=== PATIENT | male | born 1975 | race Caucasian/White ===

== ENCOUNTER 2018-06-02 19:17 | Emergency (ER) | payer OTHER ==
[~2018-06-02] VITALS: Ht 167.6 cm; Wt 83.9 kg
[~2018-06-02 19:17] MED LIST: ADULT LOW DOSE81 MG PO; ATENOLOL25 MG PO; HYDROCHLOROTH12.5 M1 PO; VENLAFAXINE H37.5 MG PO
[2018-06-02] MEDS ORDERED: SULFACETAMIDE S15 ML OD (20:12)
[2018-06-02] MEDS ORDERED: TYLENOL WITH C1 EACH PO (20:12)
== END 2018-06-02 20:20 | disposition home or self-care (01) ==
LOC: ED 19:17
DX: T15.11XA Foreign body in conjunctival sac, right eye, initial encounter (principal); F41.9 Anxiety disorder, unspecified; I10 Essential (primary) hypertension; F17.200 Nicotine dependence, unspecified, uncomplicated; Z79.899 Other long term (current) drug therapy; Z79.82 Long term (current) use of aspirin; W22.8XXA Striking against or struck by other objects, initial encounter
CPT/HCPCS: 99283